=== PATIENT | female | born 1975 | race Caucasian/White ===

== ENCOUNTER 2018-10-27 08:19 | Day surgery (SDC) | payer BC ==
[~2018-10-27 08:19] MED LIST: PHENYLephrine (100 MCG/ML) 10ML SYG
[2018-10-27] MEDS: ACETAMINOPHEN 500 MG TAB PO (10:36)
[2018-10-27] MEDS ORDERED: ALBUTEROL 0.083% (NEB) 2.5 MG/3 ML AMP HHN (11:00)
[2018-10-27] MEDS ORDERED: ONDANSETRON 4 MG INJ IV (11:00)
[2018-10-27] MEDS ORDERED: DIPHENHYDRAMINE 50 MG INJ IV (11:00)
[2018-10-27] MEDS ORDERED: MEPERIDINE 25 MG INJ IV (11:00)
[2018-10-27] MEDS ORDERED: HYDROmorphONE 1 MG/5 ML IV SYRINGE IV ×3 (11:00)
[2018-10-27] MEDS ORDERED: OXYCODONE/ACETAMINOPHEN (5/325) TAB PO ×2 (11:00)
[2018-10-27] MEDS ORDERED: LABETALOL HCL 20MG INJ IV (11:00)
[2018-10-27] MEDS ORDERED: FENTAnyl 50 MCG/ML VIAL IV ×2 (11:00)
[2018-10-27] MEDS ORDERED: morphine 2 MG INJ IV ×2 (11:00)
[2018-10-27] MEDS ORDERED: FENTAnyl 50 MCG/ML VIAL (11:41)
[2018-10-27] MEDS ORDERED: MIDAZOLAM 1 MG/ML 2 ML INJ (11:41)
[2018-10-27] MEDS: BUPIVACAINE 0.25% (MPF) 30 ML INJ (11:45)
[2018-10-27] MEDS: LIDOCAINE 1% (MPF) 30 ML INJ (11:45)
[2018-10-27] MEDS ORDERED: CEFAZOLIN 1 GM INJ (12:18)
[2018-10-27] MEDS ORDERED: PROPOFOL 40 ML (12:18)
[2018-10-27] MEDS ORDERED: BACITRACIN/POLYMYXIN 28.35 GM OINT TOP (12:18)
[2018-10-27] MEDS ORDERED: LIDOCAINE 2% (SDV) 5 ML INJ (12:18)
== END 2018-10-27 14:06 | disposition home or self-care (01) ==
LOC: SDS 08:19
DX: M67.441 Ganglion, right hand (principal); E03.9 Hypothyroidism, unspecified
CPT/HCPCS: 26160; 88307